=== PATIENT | female | born 1935 | race Asian ===

== ENCOUNTER 2017-05-29 12:50 | Outpatient (RCR) | payer OTHER | END 2017-06-07 | disposition home or self-care (01) | LOC: PTY 12:50 | DX: M25.511 Pain in right shoulder (principal); I10 Essential (primary) hypertension; M19.90 Unspecified osteoarthritis, unspecified site | CPT/HCPCS: 97110; 97162; G0283 ==

== ENCOUNTER 2017-06-30 10:30 | Outpatient (RCR) | payer OTHER | END 2017-07-08 | disposition home or self-care (01) | LOC: PTY 10:30 | DX: M25.511 Pain in right shoulder (principal); I10 Essential (primary) hypertension; M19.90 Unspecified osteoarthritis, unspecified site | CPT/HCPCS: 97110; 97140; G0283 ==

== ENCOUNTER 2017-07-30 10:00 | Outpatient (RCR) | payer OTHER | END 2017-08-07 | disposition home or self-care (01) | LOC: PTY 10:00 | DX: M25.511 Pain in right shoulder (principal); I10 Essential (primary) hypertension; M19.90 Unspecified osteoarthritis, unspecified site | CPT/HCPCS: 97110; 97140; G0283 ==

== ENCOUNTER 2017-09-16 10:15 | Outpatient (RCR) | payer OTHER | END 2017-10-08 | disposition home or self-care (01) | LOC: PTY 10:15 | DX: M25.511 Pain in right shoulder (principal); I10 Essential (primary) hypertension | CPT/HCPCS: 97110; 97140; G0283 ==

== ENCOUNTER 2017-11-10 10:00 | Outpatient (RCR) | payer OTHER | END 2017-12-06 | disposition home or self-care (01) | LOC: PTY 10:00 | DX: M25.511 Pain in right shoulder (principal); I10 Essential (primary) hypertension; M19.90 Unspecified osteoarthritis, unspecified site ==